=== PATIENT | female | born 1990 | race African-American/Black ===

== ENCOUNTER 2021-03-19 14:11 | Emergency (ER) | payer BC, MEDICAID ==
[~2021-03-19] VITALS: Ht 157.5 cm; Wt 55.0 kg
[2021-03-19 14:45] VITALS: BP 102/63
[2021-03-19] MEDS ORDERED: LIDOCAINE HCL/EPINEPHRINE 1%-EPI 1:100,000 50 ML VIAL INFIL ONE (16:15)
[2021-03-19] MEDS ORDERED: BACITRACIN ZINC OINT UDPKT TOP ONE (16:15)
[2021-03-19] MEDS ORDERED: LIDOCAINE HCL/EPINEPHRINE 1%-EPI 1:100,000 20 ML VIAL INFIL NR (16:30)
[2021-03-19] MEDS ORDERED: IBUP-2029 PO (17:11)
== END 2021-03-19 17:17 | disposition home or self-care (01) ==
LOC: ER 14:11
DX: S01.81XA Laceration without foreign body of other part of head, initial encounter (principal); Y08.89XA Assault by other specified means, initial encounter; Y93.89 Activity, other specified; Y92.9 Unspecified place or not applicable
CPT/HCPCS: 12013; 99282; J3490

== ENCOUNTER 2021-03-22 13:47 | Emergency (ER) | payer MEDICAID ==
[~2021-03-22] VITALS: Ht 157.5 cm; Wt 50.0 kg
[~2021-03-22 13:47] MED LIST: IBUP-2029 PO
[2021-03-22 14:03] VITALS: BP 97/55
== END 2021-03-22 15:12 | disposition home or self-care (01) ==
LOC: ER 13:47
DX: Z48.00 Encounter for change or removal of nonsurgical wound dressing (principal)
CPT/HCPCS: 99282

== ENCOUNTER 2021-03-26 15:06 | Emergency (ER) | payer MEDICAID ==
[~2021-03-26] VITALS: Ht 157.5 cm; Wt 55.0 kg
[2021-03-26 15:39] VITALS: BP 103/69
== END 2021-03-26 16:22 | disposition home or self-care (01) ==
LOC: ER 15:06
DX: Z48.02 Encounter for removal of sutures (principal)
CPT/HCPCS: 99281; Z7610

== ENCOUNTER 2023-09-27 21:22 | Emergency (ER) | payer SELFPAY ==
[~2023-09-27] VITALS: Ht 157.5 cm; Wt 54.4 kg
[2023-09-27 21:28] VITALS: BP 111/62; PULSE 66; RESP 16; TEMP 98.4; O2SAT 97
[2023-09-27 21:46] LABS: CLARITY URINE CLEAR (CLEAR); COLOR URINE YELLOW (YELLOW); GLUCOSE URINE NEGATIVE (NEGATIVE); KETONES URINE 1+ (NEGATIVE); LEUKOCYTE ESTERASE URINE NEGATIVE (NEGATIVE); NITRITE URINE NEGATIVE (NEGATIVE); OCCULT BLOOD URINE NEGATIVE (NEGATIVE); PH URINE >=9.0 (4.5-8.0); PROTEIN URINE 1+ (NEGATIVE); SPECIFIC GRAVITY URINE 1.032 (1.005-1.030)
[2023-09-27 22:05] LABS: RBC URINE 0-2 /hpf (0-2); SQUAMOUS EPITHELIAL CELL URINE 1+ /lpf (RARE/1+); WBC URINE 0-2 /hpf (0-2)
[2023-09-27 22:06] LABS: BACTERIA URINE 2+
[2023-09-27] MEDS ORDERED: ONDANSETRON 4MG ODT PO STA (23:28)
[2023-09-28 00:03] LABS: BASOPHILS % 0.2 % (0.0-2.0); EOSINOPHILS % 0.1 % (0.0-5.0); HEMATOCRIT. 39.2 % (36.0-48.0); HEMOGLOBIN. 12.3 g/dL (12.0-16.0); LYMPHOCYTES % 28.5 % (20.0-50.0); MEAN CORPUSCULAR HGB CONC 31.4 g/dL (31.0-37.0); MEAN CORPUSCULAR VOLUME 95.6 fL (81.0-99.0); MEAN PLATELET VOLUME 8.9 fl (7.4-10.4); MONOCYTES % 6.6 % (2.0-8.0); NEUTROPHILS % 64.6 % (40.0-76.0); PLATELET 216 x1000/uL (130-400); RED CELL DISTRIBUTION WIDTH 13.3 % (11.6-14.6); WHITE BLOOD COUNT 12.8 x1000/uL (4.5-11.0)
[2023-09-28 00:10] LABS: ALANINE AMINOTRANSFERASE 16 IU/L (10-49); ALBUMIN 4.5 g/dL (3.2-4.8); ASPARTATE AMINOTRANSFERASE 22 IU/L (<34); BILIRUBIN TOTAL 1.2 mg/dL (0.1-1.0); CALCIUM 9.4 mg/dL (8.7-10.4); CARBON DIOXIDE 27 mEq/L (21-32); CHLORIDE 105 mEq/L (98-107); CREATININE 0.7 mg/dL (0.6-1.0); GLUCOSE 94 mg/dL (70-105); POTASSIUM 3.7 mEq/L (3.5-5.1); PROTEIN TOTAL 8.1 g/dL (6.0-8.3); SODIUM 139 mEq/L (136-145); UREA NITROGEN BLOOD 6 mg/dL (9-23)
== END 2023-09-28 00:42 | disposition home or self-care (01) ==
LOC: ER 21:22
DX: K29.70 Gastritis, unspecified, without bleeding (principal); F12.10 Cannabis abuse, uncomplicated
CPT/HCPCS: 99283; 80053; 81003; 85025; 36415; Q0162